=== PATIENT | female | born 1945 | race Caucasian/White ===

== ENCOUNTER 2018-11-17 15:01 | Inpatient (IN) | payer MEDICARE ==
[~2018-11-17] VITALS: Ht 167.6 cm; Wt 79.8 kg
[2018-11-17] MEDS ORDERED: MULTI-DAY VITAM1 TAB PO (15:18)
[2018-11-17 15:35] LABS: BASOPHILS 0.3 % (0-2); EOSINOPHILS 0.4 % (0-7); HEMATOCRIT 43.3 % (36.0-48.0); HEMOGLOBIN 15.1 g/dL (12-16); IMMATURE GRANULOCYTES 0.2 % (0-5); LYMPHOCYTES 16.1 % (15-50); MCH 32.3 pg (26.0-34.0); MCHC 34.9 g/dL (31.0-37.0); MCV 92.5 fL (80.0-100.0); MEAN PLATELET VOLUME 11.3 fL (7.4-10.4); MONOCYTES 13.7 % (2-11); NEUTROPHILS 69.3 % (40-80); PLATELET COUNT 219 10x3/uL (130-400); RBC 4.68 10x6/uL (4.00-5.40); RDW 13.2 % (11.5-14.5); WBC 10.1 10x3/uL (4.8-10.8)
[2018-11-17 15:48] LABS: APTT 27.1 SECONDS (22.8-39.4); INR 1.23 (0.85-1.17)
[2018-11-17 15:53] LABS: ALBUMIN 3.6 g/dL (3.4-5.0); ALKALINE PHOSPHATASE 113 U/L (46-116); ALT (SGPT) 55 U/L (10-68); BILIRUBIN - TOTAL 3.52 mg/dL (0.2-1.3); CALC OSMOLALITY 267 mosm/kg (275-300); CALCIUM 10.7 mg/dL (8.5-10.1); CARBON DIOXIDE 26.7 mmol/L (21.0-32.0); CHLORIDE - SERUM 98 mmol/L (98-107); CREATININE - SERUM 0.8 mg/dL (0.6-1.3); GLUCOSE 117 mg/dL (74-106); POTASSIUM - SERUM 4.5 mmol/L (3.5-5.1); PROTEIN - SERUM 7.3 g/dL (6.4-8.2); SODIUM 131 mmol/L (136-145); UREA NITROGEN 25 mg/dL (7-18); eGFR NON AFRICAN AMERICAN 74 mL/min (90-120)
[2018-11-17 15:57] VITALS: BP 132/86
[2018-11-17 15:59] LABS: CREATINE KINASE 52 UL (21-215); TROPONIN-I 0.034 ng/mL (0.000-0.060)
[2018-11-17 16:05] VITALS: BP 134/96
--- NOTE | 2018-11-17 16:05 | NUR ---
CARDIZEM GTT INCREASED TO 10MG/HR PER VOICE ORDER JOHNNY YUNG
[2018-11-17 16:26] VITALS: BP 130/86
--- NOTE | 2018-11-17 16:26 | NUR ---
CARDIZEM GTT INCREASED TO 15MG/HR PER JOHNNY ONCOLOGY SOCIAL WORKER
[2018-11-17 16:33] LABS: CKMB 3.3 U/L (0.0-3.6); PRO BNP 6085 pg/mL (0-125)
[2018-11-17 16:50] VITALS: BP 119/83
[2018-11-17 18:11] VITALS: BP 126/97
--- NOTE | 2018-11-17 18:19 | MORECARE ---
CASE MANAGEMENT DISCHARGE SUMMARY PATIENT: DILIP LOZADA UNIT: [id number] ADM DATE: 11/17/18 AGE: 73 : 43 SEX: F ROOM/BED: D.2362 AUTHOR: YAJAIRA,DOC PHYSICIAN: REFERRING PHYSICIAN: JUDY ROSSI MD DATE OF SERVICE: 11/17/18 Discharge Plan Patient Name: DILIP LOZADA Facility: [facility]:[place] : 1945 Planned Disposition: Home Anticipated Discharge Date: 11/20/18 Discharge Date: Expected LOS: 3 Initial Reviewer: [email or web address] Initial Review Date: 11/17/2018 Generated: 11/17/18 7:19 pm DCP- Discharge Planning Updated by [email or web address]: Jeanette Pereira on 11/17/18 5:[address] Patient Name: DILIP LOZADA Admission Status: ER Accout number: [id number] Admission Date: 11-17-2018 : 1945 Admission Diagnosis: Attending: BLUE ROSSI Current LOS: 1 Anticipated DC Date: 11-20-2018 Planned Disposition: Home Primary Insurance: MEDICARE A & B Discharge Planning Comments: CM met with patient to complete initial dc planning assessment. CM educated patient on the CM role and verbal consent given by patient to complete assessment. CM verified patient's address, phone number, and emergency contact phone numbers. Patient lives at home alone and reports she is independent in her care at home. At discharge patient plans to return home alone and feels this is a safe discharge. CM discussed availability of home health, rehab services, and medical equipment. Patient denied known discharge needs at this time. Patient reports one of her friends will transport her home at time of discharge. CM will continue to follow and will assist as needed with dc plans/needs. Acupressure Therapist: Jeanette Pereira RN, [facility] DCPIA - Discharge Planning Initial Assessment Updated by [id number]: Jeanette Pereira on 11/17/18 6:16 pm * Is the patient Alert and Oriented? Yes * How many steps to enter\exit or inside your home? * PCP No PCP * Pharmacy [facility] in [place] * Preadmission Environment Home Alone * ADLs Independent * Equipment None * List name and contact numbers for known caregivers / representatives who currently or will assist patient after discharge: Reina Wm - employee- [phone] Emmy Rosenberg - friend - [phone] * Verbal permission to speak to the caregivers and representatives has been obtained from the patient. Yes * Community resources currently utilized None * Additional services required to return to the preadmission environment? No * Can the patient safely return to the preadmission environment? Yes * Has this patient been hospitalized within the prior 30 days at any hospital? No Patient Name: DILIP LOZADA Page [id number] at 1819 All edits/amendments must be made on the electronic document DICTATION DATE: 11/17/181817 OIL HEATER INSTALLER: EDDIE 11/17/181817 RPT#: [id number] DC DATE: STATUS: ADM IN [facility] [address] [place] [address] END OF REPORT
[2018-11-17 20:00] VITALS: BP 89/59
--- NOTE | 2018-11-17 20:11 | NUR ---
RECEIVED VIA W/C FROM ER, ON CARDIZEM @ 15, ORDER IS FOR 10, DROPPED TO 5, BP WAS 82/50, PLACED ON 2L, MEDS AND HISTORY COMPLETE, BED IS LOW, SRX2, CALL LIGHT IN REACH, WILL CONTINUE PLAN OF CARE
[2018-11-18] VITALS: BP 110/74
--- NOTE | 2018-11-18 01:28 | NUR ---
PT ASLEEP AROUSES TO NURSE WALKING INTO ROOM. PT IS AAO, DENIES ANY WEAKNESS WHEN AMBULATING, SOB NOTED. PT ON 2.5L O2 RIGHT LOWER LOBE CRACKLES. IRREGULAR HEART RHYTHM NOTED. ON TEENAGE BABYSITTER UNCONTROLLED A FIB 111 LOWER EXTREM PITTING EDEMA +1 +2 NOTED. PEDAL PULSES +2 PT HAS CARDIZEM INFUSING ORDERED TO LEFT AC 20G IV NO S/S OF DISTRESS. CALL LIGHT IN REACH. WILL CPOC
[2018-11-18 01:53] VITALS: BP 89/59; BMI 28.4
[2018-11-18 04:00] VITALS: BP 112/89
[2018-11-18 05:05] LABS: BASOPHILS 0.2 % (0-2); EOSINOPHILS 0.2 % (0-7); HEMATOCRIT 42.1 % (36.0-48.0); HEMOGLOBIN 14.3 g/dL (12-16); IMMATURE GRANULOCYTES 0.3 % (0-5); LYMPHOCYTES 11.3 % (15-50); MCH 31.6 pg (26.0-34.0); MCV 93.1 fL (80.0-100.0); MEAN PLATELET VOLUME 11.4 fL (7.4-10.4); MONOCYTES 9.3 % (2-11); NEUTROPHILS 78.7 % (40-80); PLATELET COUNT 200 10x3/uL (130-400); RBC 4.52 10x6/uL (4.00-5.40); RDW 13.2 % (11.5-14.5); WBC 10.9 10x3/uL (4.8-10.8)
[2018-11-18 05:21] LABS: ANION GAP 9.9 mmol/L (8-16); CALCIUM 10.4 mg/dL (8.5-10.1); CARBON DIOXIDE 26.8 mmol/L (21.0-32.0); CREATININE - SERUM 0.8 mg/dL (0.6-1.3); MAGNESIUM - SERUM 1.8 mg/dL (1.8-2.4); PHOSPHOROUS 3.6 mg/dL (2.5-4.9); POTASSIUM - SERUM 4.7 mmol/L (3.5-5.1); TROPONIN-I 0.028 ng/mL (0.000-0.060)
[2018-11-18 08:31] VITALS: BP 107/74
[2018-11-18 10:33] VITALS: Ht 167.6 cm; Wt 79.8 kg
--- NOTE | 2018-11-18 11:16 | HP ---
PATIENT: DILIP HAWK MEDICAL RECORD: [id number] ACCOUNT: [id number] LOCATION:[address] : [birth year] ADMISSION DATE: 11/17/18 PCP: No PCP HISTORY AND PHYSICAL EXAMINATION DIAGNOSES: 1. New onset atrial fibrillation. 2. Pulmonary edema. 3. Shortness of breath. HISTORY OF PRESENT ILLNESS: Mrs. Hawk presents with shortness of breath, dyspnea on exertion, found to be with atrial fibrillation. She has no cardiac history of atrial fibrillation, has no medical history, on no medications. She has had some chest pain and chest pressure. Her EKG has nonspecific ST-T abnormalities. PHYSICAL EXAMINATION: GENERAL APPEARANCE: Well-nourished, well-developed, appears stated age. Level of distress, comfortable. PSYCHIATRIC: Mental status, alert, normal affect. Orientation, oriented to time, place and person. EYES: Lids and conjunctiva, noninjected. No discharge, no pallor. ENT: Lips, teeth, gums, normal dentition. Oropharynx, no cyanosis, no pallor. NECK: Carotid arteries, bilateral normal upstroke, no bruits, no thrills. JUGULAR VEINS: No jugular venous pressure or distention. CERVICAL LYMPH NODES: Nontender, nonenlarged. THYROID: Not enlarged. Nontender. No nodules. LUNGS: Respiratory effort, unlabored. CHEST: Normal curvature. No thoracic deformity. No chest wall tenderness. Percussion, resonant. Auscultation, clear. No wheezes, no rales, no rhonchi. CARDIOVASCULAR: Precordial exam, nondisplaced. No heaves or pericardial thrills. Rate and rhythm, regular. Heart sounds, normal S1, normal S2. No S3, no gallop, no rub. Systolic murmur, not heard. Diastolic murmur, not heard. EXTREMITIES: No cyanosis, no edema. Peripheral pulses, full and equal in all extremities, except as noted. No bruits appreciated. ABDOMEN: Soft, nondistended. Normal aorta. No bruit. Nontender. No masses. Liver, nontender, no hepatomegaly. Spleen, nontender, no splenomegaly. MUSCULOSKELETAL: No joint tenderness. No joint swelling. No erythema. NEUROLOGICAL: Normal gait, normal strength, normal tone. SKIN: Warm and dry. OVERALL IMPRESSION: New onset atrial fibrillation, most likely it has been there for 2 weeks. We will try to rate control her, start her on enoxaparin, get an echocardiogram, get repeat troponin in morning. If her troponin increases, we will proceed with coronary angiography. If her troponin stays normal, we will place her on Eliquis and risk stratify with Lexiscan. Further care depends upon the results of the echo, risk stratification troponins, and rate control. TRANSINT:[id number] Voice Confirmation ID: [id number] DOCUMENT ID: [id number] HISTORY AND PHYSICAL [id number] DILIP HAWK JEFFREY MD at 1116 CC: [id number] DICTATION DATE: 11/17/181811 FLOOR WINDER: 11/17/182018 ADM IN [place] [id number] [place] [address]
[2018-11-18] MEDS ORDERED: BETAPACE 80 MG80 MG PO (12:46)
[2018-11-18] MEDS ORDERED: XARELTO20 MG PO (12:47)
[2018-11-18 13:53] VITALS: BP 110/68
--- NOTE | 2018-11-18 14:35 | NUR ---
DISCHARGE INSTRUCTIONS REVIEWED WITH PT AND ALL QUESTIONS ANSWERED, PIV REMOVED WITH CATHETER TIP INTACT. TELEMETRY REMOVED AND TAKEN TO TIRE BUILDER OPERATOR. ASSISTED PT TO FRONT OF HOSPITAL VIA WHEELCHAIR WHERE SHE LEFT WITH FAMILY
--- NOTE | 2018-11-20 09:19 | MORECARE ---
CASE MANAGEMENT DISCHARGE SUMMARY PATIENT: DILIP LOZADA UNIT: [id number] ADM DATE: 11/17/18 AGE: 73 : 43 SEX: F ROOM/BED: D.2500 AUTHOR: YAJAIRA,DOC PHYSICIAN: REFERRING PHYSICIAN: JUDY ROSSI MD DATE OF SERVICE: 11/20/18 Discharge Plan Patient Name: DILIP LOZADA Facility: [facility]:[place] : 1945 Planned Disposition: Home Anticipated Discharge Date: 11/18/18 Discharge Date: 11/18/2018 Expected LOS: 1 Initial Reviewer: [email or web address] Initial Review Date: 11/17/2018 Generated: 11/20/18 10:19 am DCP- Discharge Planning Updated by [email or web address]: Jeanette Pereira on 11/17/18 5:[address] Patient Name: DILIP LOZADA Admission Status: ER Accout number: [id number] Admission Date: 11-17-2018 : 1945 Admission Diagnosis: Attending: BLUE ROSSI Current LOS: 1 Anticipated DC Date: 11-20-2018 Planned Disposition: Home Primary Insurance: MEDICARE A & B Discharge Planning Comments: CM met with patient to complete initial dc planning assessment. CM educated patient on the CM role and verbal consent given by patient to complete assessment. CM verified patient's address, phone number, and emergency contact phone numbers. Patient lives at home alone and reports she is independent in her care at home. At discharge patient plans to return home alone and feels this is a safe discharge. CM discussed availability of home health, rehab services, and medical equipment. Patient denied known discharge needs at this time. Patient reports one of her friends will transport her home at time of discharge. CM will continue to follow and will assist as needed with dc plans/needs. Hammer Runner: Jeanette Pereira RN, [facility] DCPIA - Discharge Planning Initial Assessment Updated by [id number]: Jeanette Pereira on 11/17/18 6:16 pm * Is the patient Alert and Oriented? Yes * How many steps to enter\exit or inside your home? * PCP No PCP * Pharmacy [facility] in [place] * Preadmission Environment Home Alone * ADLs Independent * Equipment None * List name and contact numbers for known caregivers / representatives who currently or will assist patient after discharge: Reina Burk - employee- [phone] Emmy Rosenberg - friend - [phone] * Verbal permission to speak to the caregivers and representatives has been obtained from the patient. Yes * Community resources currently utilized None * Additional services required to return to the preadmission environment? No * Can the patient safely return to the preadmission environment? Yes * Has this patient been hospitalized within the prior 30 days at any hospital? No Last DP export: 11/17/18 5:19 p Patient Name: DILIP LOZADA Page 42507 at 0919 All edits/amendments must be made on the electronic document DICTATION DATE: 11/20/18918 OIL BURNER REPAIRER: EDDIE 11/20/18918 RPT#: [id number] DC DATE:11/18/18 STATUS: DIS IN [facility] [address] [place] [address] END OF REPORT
--- NOTE | 2018-11-24 11:13 | DS ---
PATIENT:DILIP HAWK :43 MEDICAL RECORD: [id number] DISCHARGE SUMMARY ADMISSION DATE: 11/17/18 DISCHARGE DATE: 11/18/18 DIAGNOSES: 1. New onset atrial fibrillation. 2. Shortness of breath, dyspnea on exertion. 3. Pulmonary edema. HOSPITAL COURSE: Mrs. Hawk presents with atrial fibrillation with rapid ventricular response and shortness of breath, pulmonary edema. The pulmonary edema cleared with IV Lasix. Her heart rate was controlled with sotalol. She was put on Lovenox. This was changed to Xarelto. She was discharged home with sotalol 80 mg b.i.d., Xarelto 20 mg every day. We will set outpatient nuclear stress testing and follow up in 1 week. TRANSINT:[id number] Voice Confirmation ID: [id number] DOCUMENT ID: [id number] JUDY ROSSI MD at 1113 CC: [id number] DICTATION DATE: 11/18/18 112 HAULAGE BOSS: 11/18/182027 DIS IN 11/18/18 [place] [address] [place] [address]
--- NOTE | 2018-11-24 11:13 | EC ---
PATIENT:DILIP LOZADA DATE OF SERVICE: 11/17/18 SEX: F MEDICAL RECORD: [id number] DATE OF : [birth year] LOCATION:D.M2 D.212 AGE OF PATIENT: 73 ADMISSION DATE: 11/17/18 REFERRING PHYSICIAN: INTERPRETING PHYSICIAN: JUDY ROSALES MD ECHOCARDIOGRAM REPORT ECHO CHARGES 4 ECHO COMPLETE Date: 11/18/18 CLINICAL DIAGNOSIS: A-FIB ECHOCARDIOGRAPHIC MEASUREMENTS (adult normal given) AC root (d.<3.7cm) 3.2 cm LV Septum d (<1.2 cm> 1.2 cm Valve Excursion 2.0 cm LV Septum (systole) 1.6 cm Left Atria (s.<4.0cm> 3.8 cm LVPW d(<1.2cm) 1.1 cm RV (d.<2.3cm) 2.8 cm LVPW (sytole) 1.5 cm LV diastole(<5.6CM) 5.7 cm MV E-F(>70mm/sec) cm LV systole 4.4 cm LVOT Diameter 1.7 cm MV exc.(>10mm) cm Est.ejection fraction (50-75%) % DOPPLER: LVIT cm/sec A cm/sec E 131 cm/sec LA cm/sec RVSP 44.2 mmHg LVOT 91.0 cm/sec AOP1/2T m/s Asc. Ao 144 cm/sec RVOT 61.0 cm/sec RA cm/sec PA 83.0 cm/sec AV Gradient Peak 8.3 mmHg AV Mean 3.9 mmHg AV Area 1.5 cm MV Gradient Peak 5.9 mmHg MV Mean 2.5 mmHg MV Area cm COMMENTS: Museum Registrar: Jac DE LA ROSAOE Assistant Vice President: 1 Dr. Rosales TAPE# PACS Pericardial Effusion N DATE OF SERVICE: 11/18/2018 FINDINGS: 1. Left ventricular chamber size is mildly dilated. Left ventricular systolic function is preserved at 50%. 2. Left atrium is within normal limits at 3.8 cm. Right atrium and right ventricular chamber sizes are mildly dilated. 3. Valvular structures have normal structure and motion. 4. Doppler interrogation reveals xeuhypes-gi-fqnrlc mitral regurgitation and anrjpdhl-ow-tzqfmq tricuspid regurgitation. No other valvular insufficiency or ECHOCARDIOGRAM REPORT [id number] DILIP LOZADA stenosis. Pulmonary systolic pressure is slightly elevated, estimated at 44 mmHg. 5. No evidence of pericardial effusion or left ventricular thrombus. TRANSINT:[id number] Voice Confirmation ID: [id number] DOCUMENT ID: [id number] JUDY ROSALES MD at 1113 CC: [id number] DICTATION DATE: 11/19/18 1022 WEDDING PLANNER: 11/19/18 1218 DIS IN 11/18/18 [place] [id number] [place] [id number]
== END 2018-11-18 14:37 | disposition home or self-care (01) | DRG 308 ==
LOC: D.ER 15:01 → D.M2 17:53
PROVIDERS: Family Medicine; ADMIT Internal Medicine Interventional Cardiology; ATTEND Internal Medicine Interventional Cardiology
DX: I48.91 Unspecified atrial fibrillation (principal); I50.31 Acute diastolic (congestive) heart failure; J81.1 Chronic pulmonary edema

== ENCOUNTER 2018-11-20 10:42 | Inpatient (IN) | payer MEDICARE ==
[~2018-11-20] VITALS: Ht 167.6 cm; Wt 77.1 kg
[~2018-11-20 10:42] MED LIST: BETAPACE 80 MG80 MG PO; MULTI-DAY VITAM1 TAB PO; XARELTO20 MG PO
--- NOTE | 2018-11-20 11:05 | NUR ---
PT STATES HAS NOT STARTED THE XARALTO YET. WAS RX'D ON TUESDAY ET PHARMACIES WERE CLOSED.
[2018-11-20 11:35] LABS: BASOPHILS 0.7 % (0-2); EOSINOPHILS 1.9 % (0-7); HEMATOCRIT 42.2 % (36.0-48.0); HEMOGLOBIN 14.5 g/dL (12-16); IMMATURE GRANULOCYTES 0.2 % (0-5); LYMPHOCYTES 22.4 % (15-50); MCH 31.7 pg (26.0-34.0); MCHC 34.4 g/dL (31.0-37.0); MCV 92.1 fL (80.0-100.0); MEAN PLATELET VOLUME 11.2 fL (7.4-10.4); MONOCYTES 13.4 % (2-11); NEUTROPHILS 61.4 % (40-80); PLATELET COUNT 213 10x3/uL (130-400); RBC 4.58 10x6/uL (4.00-5.40); RDW 13.3 % (11.5-14.5); WBC 5.4 10x3/uL (4.8-10.8)
[2018-11-20 11:52] LABS: ALBUMIN 3.1 g/dL (3.4-5.0); ALKALINE PHOSPHATASE 100 U/L (46-116); ALT (SGPT) 47 U/L (10-68); BILIRUBIN - TOTAL 1.94 mg/dL (0.2-1.3); CALC OSMOLALITY 280 mosm/kg (275-300); CALCIUM 10.5 mg/dL (8.5-10.1); CARBON DIOXIDE 26.3 mmol/L (21.0-32.0); CHLORIDE - SERUM 106 mmol/L (98-107); CREATININE - SERUM 0.6 mg/dL (0.6-1.3); GLUCOSE 123 mg/dL (74-106); POTASSIUM - SERUM 4.3 mmol/L (3.5-5.1); PROTEIN - SERUM 6.7 g/dL (6.4-8.2); SODIUM 140 mmol/L (136-145); UREA NITROGEN 14 mg/dL (7-18); eGFR NON AFRICAN AMERICAN > 90 mL/min (90-120)
[2018-11-20 11:59] LABS: APTT 27.4 SECONDS (22.8-39.4); INR 1.23 (0.85-1.17)
[2018-11-20 12:03] LABS: CKMB 1.2 U/L (0.0-3.6); CREATINE KINASE 29 UL (21-215); MAGNESIUM - SERUM 1.9 mg/dL (1.8-2.4); TROPONIN-I 0.022 ng/mL (0.000-0.060)
[2018-11-20 15:30] VITALS: BP 126/85
[2018-11-20 16:44] VITALS: BP 160/58
[2018-11-20 17:09] VITALS: BP 160/58; BMI 27.5
--- NOTE | 2018-11-20 17:45 | NUR ---
LYING QUIIETLY. PT TAKES OWN MEDS. DENIES ANY NEEDS.
[2018-11-20 20:00] VITALS: BP 114/59
--- NOTE | 2018-11-20 20:42 | NUR ---
RECIEVED LAYING IN BED WITH EYES OPEN. ALERT AND ORIENTED X4. UP AD KIET. IV TO RIGHT FA WITH CARDIZEM AT 10CC/HR. TELEMETRY IN PLACE. DENIES ANY NEEDS OTHER THAN SLEEP.
[2018-11-21] VITALS: BP 114/49
[2018-11-21 04:00] VITALS: BP 119/44
[2018-11-21 06:25] LABS: BASOPHILS 0.6 % (0-2); EOSINOPHILS 1.7 % (0-7); HEMATOCRIT 45.4 % (36.0-48.0); HEMOGLOBIN 15.4 g/dL (12-16); IMMATURE GRANULOCYTES 0.2 % (0-5); LYMPHOCYTES 26.1 % (15-50); MCH 31.7 pg (26.0-34.0); MCHC 33.9 g/dL (31.0-37.0); MCV 93.4 fL (80.0-100.0); MEAN PLATELET VOLUME 11.4 fL (7.4-10.4); MONOCYTES 11.9 % (2-11); NEUTROPHILS 59.5 % (40-80); PLATELET COUNT 228 10x3/uL (130-400); RBC 4.86 10x6/uL (4.00-5.40); RDW 13.6 % (11.5-14.5); WBC 6.5 10x3/uL (4.8-10.8)
[2018-11-21 06:50] LABS: ALBUMIN 3.3 g/dL (3.4-5.0); BILIRUBIN - TOTAL 1.98 mg/dL (0.2-1.3); CALCIUM 10.8 mg/dL (8.5-10.1); POTASSIUM - SERUM 3.9 mmol/L (3.5-5.1); TROPONIN-I 0.017 ng/mL (0.000-0.060)
[2018-11-21 06:52] LABS: CARBON DIOXIDE 32.9 mmol/L (21.0-32.0); CREATININE - SERUM 0.8 mg/dL (0.6-1.3)
--- NOTE | 2018-11-21 07:43 | NUR ---
ASSESSMENT DONE. DENIES NEEDS.
[2018-11-21 08:00] VITALS: BP 118/57
[2018-11-21 10:43] VITALS: Ht 167.6 cm; Wt 77.1 kg
--- NOTE | 2018-11-21 10:47 | NUR ---
I have reviewed this patient and I concur with the Shift Assessment completed by the Licensed Practical Nurse today this shift.
[2018-11-21 12:38] VITALS: BP 108/74
[2018-11-21 15:48] VITALS: BP 112/69
--- NOTE | 2018-11-21 17:09 | NUR ---
WITHOUT CHANGES OR DISTRESS NOTED AT THIS TIME. DENIES NEEDS
--- NOTE | 2018-11-21 19:15 | NUR ---
EVENING ROUNDS MADE. PATIENT A&OX4, PATIENT LYING ON RIGHT SIDE, EYES CLOSED. BREATHING EVEN AND UNLABORED. NO S/SX OF DISTRESS NOTED. WILL CPOC. PATIENT HAS IV TO RT FA SL, PATENT, DRSG C/D/I. PATIENT DENIES NEEDS AT THIS TIME. CL IN REACH, BED LOCKED AND LOWERED. WILL CTM.
[2018-11-21 20:00] VITALS: BP 107/63
--- NOTE | 2018-11-21 21:37 | NUR ---
PATIENT TAKES OWN HOME MEDS.
[2018-11-22] VITALS: BP 104/54
[2018-11-22 04:00] VITALS: BP 120/52
--- NOTE | 2018-11-22 07:30 | NUR ---
ASSESSMENT DONE. DENIES NEEDS
--- NOTE | 2018-11-22 10:27 | NUR ---
I have reviewed this patient and I concur with the Shift Assessment completed by the Licensed Practical Nurse today this shift.
[2018-11-22 12:27] VITALS: BP 126/73
[2018-11-22] MEDS ORDERED: CARDIZEM CD120 MG PO (12:46)
--- NOTE | 2018-11-22 13:45 | NUR ---
DC GIVEN TO PT
--- NOTE | 2018-11-22 14:04 | NUR ---
DC HOME PER PERSONAL CAR
--- NOTE | 2018-11-22 16:45 | MORECARE ---
CASE MANAGEMENT DISCHARGE SUMMARY PATIENT: DILIP LOZADA UNIT: [id number] ADM DATE: 11/20/18 AGE: 73 : 43 SEX: F ROOM/BED: D.8746 AUTHOR: ANDREI GATES PHYSICIAN: REFERRING PHYSICIAN: FRANCESCO OTTO M.D. DATE OF SERVICE: 11/22/18 Discharge Plan Patient Name: DILIP LOZADA Facility: [facility]:[place] : 1945 Planned Disposition: Home Anticipated Discharge Date: 11/22/18 Discharge Date: 11/22/2018 Expected LOS: 2 Initial Reviewer: [email or web address] Initial Review Date: 11/22/2018 Generated: 11/22/18 5:44 pm Patient Name: DILIP LOZADA Page 65497 at 1645 All edits/amendments must be made on the electronic document DICTATION DATE: 11/22/181643 ELEVATOR CONSTRUCTOR HELPER: EDDIE 11/22/181643 RPT#: [id number] DC DATE:11/22/18 STATUS: DIS IN [facility] [address] [place] [address] END OF REPORT
--- NOTE | 2018-11-22 16:52 | MORECARE ---
CASE MANAGEMENT DISCHARGE SUMMARY PATIENT: DILIP LOZADA UNIT: [id number] ADM DATE: 11/20/18 AGE: 73 : 43 SEX: F ROOM/BED: D.5060 AUTHOR: YAJAIRA,DOC PHYSICIAN: REFERRING PHYSICIAN: FRANCESCO OTTO M.D. DATE OF SERVICE: 11/22/18 Discharge Plan Patient Name: DILIP LOZADA Facility: [facility]:[place] : 1945 Planned Disposition: Home Anticipated Discharge Date: 11/22/18 Discharge Date: 11/22/2018 Expected LOS: 2 Initial Reviewer: [email or web address] Initial Review Date: 11/22/2018 Generated: 11/22/18 5:52 pm Comments DCP- Discharge Planning Updated by [email or web address]: Gerhard Gabriel on 11/22/18 3:[address] Patient Name: DILIP LOZADA Admission Status: ER Accout number: [id number] Admission Date: 11-20-2018 : 1945 Admission Diagnosis:UNSPECIFIED ATRIAL FIBRILLATION Attending: FRANCESCO OTTO Current LOS: 2 Anticipated DC Date: 11-22-2018 Planned Disposition: Home Primary Insurance: MEDICARE A & B Discharge Planning Comments: CM MET WITH PT IN ROOM TO DISCUSS DISCHARGE PLANNING AND NEEDS. DILIP LOZADA provided verbal consent to discuss current and ongoing needs with/in the presence of: DAUGHTER, KAY HARRY. PT REPORTS LIVING AT HOME INDEPENDENTLY AND ALONE. PT HAS NO MEDICAL EQUIPMENT AND NO OUTSIDE SERVICES ASSISTING IN THE HOME. CM DISCUSSED AVAILABILITY OF HOME HEALTH, REHAB SERVICES AND MEDICAL EQUIPMENT. PT DENIES DISCHARGE NEEDS, REPORTS HER DAUGHTER IS HERE TO PICK HER UP FOR DISCHARGE HOME. Celery Cutter: Gerhard Gabriel DCPIA - Discharge Planning Initial Assessment Updated by [email or web address]: Gerhard Gabriel on 11/22/18 4:47 pm * Is the patient Alert and Oriented? Yes * How many steps to enter\exit or inside your home? * PCP NONE * Pharmacy [facility] IN [place] * Preadmission Environment Home Alone * ADLs Independent * Equipment None * Other Equipment NO MEDICAL EQUIPMENT PROVIDER PREFERENCE * List name and contact numbers for known caregivers / representatives who currently or will assist patient after discharge: GERA THOMSON, SON, KAY HARRY, DTR, * Verbal permission to speak to the caregivers and representatives has been obtained from the patient. Yes * Community resources currently utilized None * Please name any agencies selected above. NONE * Additional services required to return to the preadmission environment? No * Can the patient safely return to the preadmission environment? Yes * Has this patient been hospitalized within the prior 30 days at any hospital? No Last DP export: 11/22/18 3:45 p Patient Name: DILIP LOZADA Page 38594 at 1652 All edits/amendments must be made on the electronic document DICTATION DATE: 11/22/181651 PBX TECHNICIAN: EDDIE 11/22/181651 RPT#: [id number] DC DATE:11/22/18 STATUS: DIS IN [facility] [address] [place] [address] END OF REPORT
== END 2018-11-22 14:04 | disposition home or self-care (01) | DRG 308 ==
LOC: D.ER 10:42 → D.M2 15:05
PROVIDERS: Family Medicine; ADMIT Internal Medicine Cardiovascular Disease; ATTEND Internal Medicine Cardiovascular Disease
DX: I48.91 Unspecified atrial fibrillation (principal); I50.21 Acute systolic (congestive) heart failure